=== PATIENT | male | born 1955 | race Caucasian/White ===

== ENCOUNTER → 2018-04-29 | Outpatient (CLI) | payer OTHER ==
--- NOTE | 2018-04-29 17:10 | RADIOLOGY REPORT (SQ) ---
EXAM DESCRIPTION: CHEST PA/LATERAL COMPLETED DATE/TIME: 04/29/2018 5:02 pm REASON FOR STUDY: PRE-OP COMPARISON: None. EXAM PARAMETERS: NUMBER OF VIEWS: two views TECHNIQUE: Digital Frontal and Lateral radiographic views of the chest acquired. RADIATION DOSE: NA LIMITATIONS: none FINDINGS: LUNGS AND PLEURA: There is somewhat nodular opacification both costophrenic angles. No pl eural effusion. MEDIASTINUM AND HILAR STRUCTURES: No masses or contour abnormalities. HEART AND VASCULAR STRUCTURES: Borderline heart size. No pulmonary edema. BONES: No acute findings. HARDWARE: None in the chest. OTHER: No other significant finding. IMPRESSION: Borderline heart size without pulmonary edema. Slight nodularity in the lung bases may ear represent granulomatous disease. No previous studies are available for comparison. TECHNICAL DOCUMENTATION: JOB ID: [id number] [employer]- All Rights Reserved Reading location - IP/workstation name: [email or web address]
[2018-04-29 17:43] LABS: ABSOLUTE LYMPHOCYTES (AUTO) 1.6 10^3/uL (0.5-4.7); ABSOLUTE MONOCYTES (AUTO) 0.9 10^3/uL (0.1-1.4); ABSOLUTE NEUT (AUTO) 3.9 10^3/uL (1.7-8.2); BASOPHILS % (AUTO) 0.3 % (0-2); EOSINOPHILS % (AUTO) 0.2 % (0-6); HEMATOCRIT 43.2 % (37.9-51.0); HEMOGLOBIN 14.7 g/dL (13.5-17.0); LYMPHOCYTES % (AUTO) 25.2 % (13-45); MEAN CORPUSCULAR VOLUME 88 fl (80-97); MONOCYTES % (AUTO) 13.4 % (3-13); PLATELET COUNT 158 10^3/uL (150-450); RED CELL DISTRIBUTION WIDTH 13.7 % (11.5-14.0); SEGMENTED NEUTROPHILS % (AUTO) 60.9 % (42-78); TOTAL CELLS COUNTED % (AUTO) 100 %; WHITE BLOOD COUNT 6.5 10^3/uL (4.0-10.5)
[2018-04-29 17:47] LABS: APPEARANCE,URINE CLEAR; BILIRUBIN,URINE NEGATIVE (NEGATIVE); COLOR,URINE YELLOW; GLUCOSE, URINE NEGATIVE (NEGATIVE); KETONES,URINE NEGATIVE (NEGATIVE); LEUKOCYTE ESTERASE,URINE NEGATIVE (NEGATIVE); NITRITE,URINE NEGATIVE (NEGATIVE); PROTEIN,URINE NEGATIVE (NEGATIVE)
[2018-04-29 17:53] LABS: URINE SPECIFIC GRAVITY 1.021
[2018-04-29 18:02] LABS: ANION GAP 6 (5-19); BLOOD UREA NITROGEN 16 mg/dL (7-20); CALCIUM 9.7 mg/dL (8.4-10.2); CARBON DIOXIDE 33 mmol/L (22-30); CHLORIDE 101 mmol/L (98-107); GLUCOSE 76 mg/dL (75-110); POTASSIUM 4.4 mmol/L (3.6-5.0); SODIUM 139.7 mmol/L (137-145)
--- NOTE | 2018-04-30 18:18 | EKG REPORT ---
SEVERITY:- BORDERLINE ECG - SINUS RHYTHM PROBABLE LEFT ATRIAL ABNORMALITY BORDERLINE INFERIOR Q WAVES : Confirmed by: Cynthia Emerson MD 30-Apr-2018 18:17:38
== END ==
LOC: OD 16:16
PROVIDERS: ATTEND Orthopaedic Surgery
DX: Z01.810 Encounter for preprocedural cardiovascular examination (principal); Z01.812 Encounter for preprocedural laboratory examination; Z01.818 Encounter for other preprocedural examination
CPT/HCPCS: 36415; 71046; 80048; 81001; 85025; 93005; 93010

== ENCOUNTER 2018-05-26 06:45 | Inpatient (IN) | payer OTHER ==
[~2018-05-26 06:45] MED LIST: BUPIVACAINE INJ/PF LIPOSOME/PF 266 MG/20 ML SDV IJ PRN; CEFAZOLIN INJ 1 GM VIAL ONE; CLINDAMYCIN 600 MG/D5W RTU 600 MG/50 ML RTUPB IV PRN; IBUPROFEN 800 MG/NS 250 ML IV PRN; LACTATED RINGERS 1000 ML IV PRN; LANSOPRAZOLE 15 MG TAB.RAP.DR ONE; LANSOPRAZOLE 15 MG TAB.RAP.DR PO PRN; LIDOCAINE 0.5% INJ-PF (5 MG/ML) 50 ML SDV SUBCUT PRN; OXYCODONE HCL SR 10 MG TABLET PO ONE; OXYCODONE HCL SR 10 MG TABLET PO PRN
[2018-05-26] MEDS ORDERED: MIDAZOLAM 2 MG/2 ML INJ ONE (06:52)
[2018-05-26] MEDS ORDERED: TRANEXAMIC ACID INJ/PF 1,000 MG/10 ML SDV IV ONE ×3 (06:53→11:00)
[2018-05-26] MEDS ORDERED: PROPOFOL INJ 200 MG/20 ML VIAL IV ONE (06:53)
[2018-05-26] MEDS ORDERED: ONDANSETRON HCL INJ/PF 4 MG/2 ML SDV ONE (06:53)
[2018-05-26] MEDS ORDERED: BUPIVACAINE HCL/DEX-WATER/PF 15 MG/2 ML AMPULE ONE (06:54)
[2018-05-26] MEDS ORDERED: IPRATROPIUM/ALBUTEROL 0.5-2.5 MG/3 ML AMPUL NEB ONE (07:01)
[2018-05-26] MEDS: VANCOMYCIN HCL 1,000 MG in DEXTROSE 5%-WATER 250 ML IV PRN ×2 (07:30→08:00)
[2018-05-26] MEDS: BUPIVACAINE HCL 0.25% /EPINEPHRINE INJ/PF 30 ML SDV ONE ×2 (07:42→09:15)
[2018-05-26] MEDS: THROMBIN (BOVINE) 5000 UNIT EPITAXIS KIT ONE ×2 (07:42→09:15)
[2018-05-26] MEDS ORDERED: CLINDAMYCIN 600 MG/D5W RTU 600 MG/50 ML RTUPB IV ONE (08:27)
[2018-05-26] MEDS ORDERED: FENTANYL CITRATE INJ/PF 100 MCG/2 ML AMPUL IV PRN ×3 (09:06)
[2018-05-26] MEDS ORDERED: MEPERIDINE HCL/PF INJ 25 MG/1 ML DISP.SYRIN IV PRN (09:06)
[2018-05-26] MEDS ORDERED: MORPHINE SULFATE 10 MG/ML INJ IV PRN ×5 (09:06→09:40)
[2018-05-26] MEDS ORDERED: PROMETHAZINE HCL INJ 25 MG/1 ML VIAL IV PRN (09:06)
[2018-05-26] MEDS ORDERED: DIPHENHYDRAMINE HCL 50 MG/ML VIAL IV PRN ×2 (09:06→09:40)
[2018-05-26] MEDS ORDERED: ZOLPIDEM TARTRATE 5 MG TABLET PO PRN (09:40)
[2018-05-26] MEDS ORDERED: ONDANSETRON HCL INJ/PF 4 MG/2 ML SDV IV PRN (09:40)
[2018-05-26] MEDS ORDERED: MAG HYDROX/AL HYDROX/SIMETH SUSP 30 ML UDCUP PO PRN (09:40)
[2018-05-26] MEDS ORDERED: ONDANSETRON 4 MG TAB.RAPDIS PO PRN (09:40)
[2018-05-26] MEDS ORDERED: ACETAMINOPHEN 325 MG TABLET PO PRN (09:40)
--- NOTE | 2018-05-26 09:40 | Operative Report ---
Operative Report DATE OF SURGERY: 05/26/18 PREOPERATIVE DIAGNOSIS: Right hip arthritis OPERATION: Right hip arthroplasty SURGEON: WENDY FREIRE ANESTHESIA: Spinal TISSUE REMOVED OR ALTERED: Bone to pathology ESTIMATED BLOOD LOSS: 100 PROCEDURE: Implants used: Femur: Vincent Accolade 2 size 6 femoral stem Acetabular shell: 60 mm hemispherical shell Liner: 36 mm flat cross-link polyethylene liner Head: A 6 mm chrome cobalt head standard neck The patient is placed in a left lateral decubitus position on the operating table. The right lower extremity and hindquarter is prepped and draped in a sterile fashion. A curvilinear incision was made over the greater trochanter a posterior approach the hip was taken. The femoral head is dislocated and the femoral neck transected using an oscillating saw. Attention was next turned to the acetabulum. Soft tissues cleared off the acetabulum using electrocautery. The acetabulum was then prepared using a series of hemispherical reamers until a 60 millimeters reamer is seated. Subsequently a 60 millimeters Vincent titanium hemispherical shell is impacted into position and secured with one screw. A standard flat 36 millimeters cross- link liner is impacted into the shell. Attention was next turned to the femur. Access is gained to the femoral canal using a box osteotome to the piriformis fossa. The femur is then prepared using a series of broaches until a number 6 broach is seated. A trial reduction was now performed using a 36 millimeters head with standard neck. Preoperative leg length was recreated and is excellent anterior posterior stability. A decision was made to proceed with the above construct. All trial implants were removed. The wound is irrigated with pulsed lavage. A number 6 stem is impacted into the femoral canal. A trial reduction was again performed with a 36 mm head and a standard neck. Findings as previously. The hip was dislocated one last time and the final chrome-cobalt head is impacted onto the trunnion. The hip was reduced. Wound is copiously irrigated with pulsed lavage. Sent closed in layers using interrupted Vicryl followed by erin. A sterile dressing is applied and the patient's returned to recovery room in satisfactory patient.
[2018-05-26] MEDS ORDERED: (PENDING PHARMACY ID) (Multivit-Min/Fa/Lycopen/Lutein [Centrum Silver Men Tablet] 1 TAB) PO SCH (10:00)
[2018-05-26] MEDS ORDERED: (PENDING PHARMACY ID) (Lisinopril [Lisinopril] 40 MG) PO SCH (10:00)
[2018-05-26] MEDS ORDERED: OXYCODONE HCL SR 10 MG TABLET PO SCH (10:00)
[2018-05-26] MEDS ORDERED: (PENDING PHARMACY ID) (Bupropion Hcl [Wellbutrin Sr 150 Mg Tablet] 150 MG) PO SCH (10:00)
--- NOTE | 2018-05-26 11:48 | RADIOLOGY REPORT (SQ) ---
EXAM DESCRIPTION: PELVIS AP COMPLETED DATE/TIME: 05/26/2018 10:23 am REASON FOR STUDY: Post Op Long Cassette in PACU M16.11 UNILATERAL PRIMARY OSTEOARTHRITIS, RIGHT HI P COMPARISON: None. NUMBER OF VIEWS: One view TECHNIQUE: Digital radiographic images of the pelvis post-procedure LIMITATIONS: None. FINDINGS: BONES: No worrisome or unexpected findings post-procedure. DEVICE: Total hip replacement. Components of the device in appropriate location. SOFT TISSUES: No worrisome findings. Expected postoperative soft tissue changes. IMPRESSION: SATISFACTORY POSTOPERATIVE PELVIS. TECHNICAL DOCUMENTATION: JOB ID: [id number] [employer]- All Rights Reserved Reading location - IP/workstation name: [email or web address]
[2018-05-26] MEDS ORDERED: NICOTINE POLACRILEX 4 MG PO PRN (14:56)
[2018-05-26] MEDS: OXYCODONE HCL IR 5 MG TABLET PO PRN (15:40)
[2018-05-26] MEDS: BUPROPION HCL 100 MG TABLET PO SCH ×2 (15:47→22:39)
[2018-05-26] MEDS ORDERED: IBUPROFEN 800 MG in NORMAL SALINE 250 ML IV SCH (18:00)
[2018-05-26] MEDS: SENNOSIDES/DOCUSATE 8.6-50 MG 1 EACH TABLET PO SCH (19:47)
[2018-05-26] MEDS: IBUPROFEN 800 MG in NORMAL SALINE 250 ML IV SCH (19:47)
[2018-05-26] MEDS: RINGERS SOLUTION,LACTATED 1,000 ML IV PRN (20:40)
[2018-05-26] MEDS ORDERED: VANCOMYCIN HCL 1,000 MG in DEXTROSE 5%-WATER 250 ML IV ONE (21:30)
[2018-05-26] MEDS: OXYCODONE HCL SR 10 MG TABLET PO SCH (22:40)
[2018-05-27] MEDS: IBUPROFEN 800 MG in NORMAL SALINE 250 ML IV SCH ×3 (01:36→18:06)
[2018-05-27] MEDS: LANSOPRAZOLE 30 MG TAB.RAP.DR PO SCH (05:43)
[2018-05-27] MEDS: BUPROPION HCL 100 MG TABLET PO SCH ×3 (05:43→21:46)
[2018-05-27] MEDS: RINGERS SOLUTION,LACTATED 1,000 ML IV PRN (05:45)
[2018-05-27 06:36] LABS: ANION GAP 8 (5-19); BLOOD UREA NITROGEN 15 mg/dL (7-20); CALCIUM 8.5 mg/dL (8.4-10.2); CARBON DIOXIDE 31 mmol/L (22-30); CHLORIDE 98 mmol/L (98-107); GLUCOSE 101 mg/dL (75-110); POTASSIUM 3.9 mmol/L (3.6-5.0)
[2018-05-27 06:37] LABS: HEMATOCRIT 35.3 % (37.9-51.0); HEMOGLOBIN 12.1 g/dL (13.5-17.0); MEAN CORPUSCULAR HEMOGLOBIN 30.1 pg (27.0-33.4); MEAN CORPUSCULAR HGB CONC 34.3 g/dL (32.0-36.0); MEAN CORPUSCULAR VOLUME 88 fl (80-97); PLATELET COUNT 128 10^3/uL (150-450); RED BLOOD COUNT 4.02 10^6/uL (4.35-5.55); RED CELL DISTRIBUTION WIDTH 13.3 % (11.5-14.0); WHITE BLOOD COUNT 9.3 10^3/uL (4.0-10.5)
--- NOTE | 2018-05-27 06:37 | PDOC PROGRESS REPORT ---
Subjective Progress Note for:: 05/27/18 Reason For Visit: M16.11 UNILATERAL PRIMARY OSTEOARTHRITIS, RIGHT HI 62-year-old white male postop day 1 status post right hip arthroplasty. Patient with minimal complaints of pain this morning. Ambulated 30 feet with physical therapy yesterday. Physical Exam Vital Signs: Temp Pulse Resp BP Pulse Ox 36.7 C 65 18 106/66 92 05/26/18 23:53 05/26/18 23:53 05/26/18 19:57 05/26/18 23:53 05/26/18 23:53 Intake & Output 05/25/18 05/26/18 05/27/18 06:59 06:59 06:59 Intake Total 6508 Output Total 2720 Balance 3788 General appearance: PRESENT: no acute distress, mild distress, obese, well- nourished Head exam: PRESENT: normocephalic Respiratory exam: PRESENT: unlabored Cardiovascular exam: PRESENT: RRR Pulses: PRESENT: +1 pedal pulses bilateral Vascular exam: PRESENT: normal capillary refill GI/Abdominal exam: PRESENT: soft Rectal exam: PRESENT: deferred Extremities exam: PRESENT: other - Right hip dressing clean dry and intact. Leg lengths are equal. Distal neurovascular examination is intact. Neurological exam: PRESENT: alert, awake, oriented to person, oriented to place , oriented to time, oriented to situation. ABSENT: motor sensory deficit Psychiatric exam: PRESENT: appropriate affect, normal mood. ABSENT: homicidal ideation, suicidal ideation Skin exam: PRESENT: dry, intact, warm. ABSENT: cyanosis, rash Results Laboratory Results: 05/26/18 05/26/18 05/27/18 07:20 07:20 03:53 WBC Cancelled RBC Cancelled Hgb Cancelled Hct Cancelled MCV Cancelled MCH Cancelled MCHC Cancelled RDW Cancelled Plt Count Cancelled Sodium Potassium 4.2 Chloride Carbon Dioxide Anion Gap BUN Creatinine Est GFR ( Amer) Est GFR (Non-Af Amer) Glucose Calcium Blood Type A POSITIVE Antibody Screen NEGATIVE 05/27/18 03:53 WBC RBC Hgb Hct MCV MCH MCHC RDW Plt Count Sodium Potassium Chloride Carbon Dioxide Anion Gap BUN Creatinine Est GFR ( Amer) Est GFR (Non-Af Amer) Glucose Calcium Blood Type Antibody Screen Impressions: Pelvis X-Ray 05/26/18 09:42 IMPRESSION: SATISFACTORY POSTOPERATIVE PELVIS. Status: Imported from PACS Assessment & Plan - Diagnosis (1) Arthritis of right hip Is this a current diagnosis for this admission?: Yes Plan: Land for continued mobilization with physical therapy weightbearing as tolerated. Anticipate discharge home tomorrow with home health services and DME - Time Time Spent with patient: 15-24 minutes Anticipated discharge: Home with Homehealth Within: within 24 hours
[2018-05-27] MEDS: OXYCODONE HCL SR 10 MG TABLET PO SCH ×2 (09:14→21:46)
[2018-05-27] MEDS: LISINOPRIL 10 MG TABLET PO SCH (09:15)
[2018-05-27] MEDS: HYDROCHLOROTHIAZIDE 25 MG TABLET PO SCH (09:16)
[2018-05-27] MEDS: ATENOLOL 50 MG TABLET PO SCH (09:16)
[2018-05-27] MEDS: ASPIRIN 81 MG TABLET, ENT COATED PO SCH (09:17)
[2018-05-27] MEDS: OXYCODONE HCL IR 5 MG TABLET PO PRN (09:17)
[2018-05-27] MEDS: SENNOSIDES/DOCUSATE 8.6-50 MG 1 EACH TABLET PO SCH ×2 (09:17→18:04)
[2018-05-27] MEDS: PRENATAL VITAMIN W DHA CAPSULE PO SCH (09:17)
[2018-05-27] MEDS ORDERED: ATORVASTATIN CALCIUM 80 MG TABLET PO SCH ×2 (10:00→22:00)
[2018-05-27] MEDS ORDERED: ENOXAPARIN SODIUM INJ 30 MG/0.3 ML DISP.SYRIN SUBCUT SCH (10:00)
[2018-05-28] MEDS: IBUPROFEN 800 MG in NORMAL SALINE 250 ML IV SCH ×2 (02:46→10:06)
[2018-05-28 05:46] LABS: HEMATOCRIT 34.5 % (37.9-51.0); HEMOGLOBIN 11.8 g/dL (13.5-17.0); MEAN CORPUSCULAR HEMOGLOBIN 30.2 pg (27.0-33.4); MEAN CORPUSCULAR HGB CONC 34.2 g/dL (32.0-36.0); MEAN CORPUSCULAR VOLUME 88 fl (80-97); PLATELET COUNT 121 10^3/uL (150-450); RED BLOOD COUNT 3.91 10^6/uL (4.35-5.55); RED CELL DISTRIBUTION WIDTH 13.3 % (11.5-14.0); WHITE BLOOD COUNT 11.9 10^3/uL (4.0-10.5)
[2018-05-28] MEDS: LANSOPRAZOLE 30 MG TAB.RAP.DR PO SCH (05:54)
[2018-05-28] MEDS: BUPROPION HCL 100 MG TABLET PO SCH (05:54)
--- NOTE | 2018-05-28 07:08 | PDOC DISCHARGE SUMMARY ---
General - Admit/Disc Date/PCP Admission Date/Primary Care Provider: 05/26/18 06:45 VLADIMIR BROWNE MD Discharge Date: 05/28/18 - Discharge Diagnosis (1) Arthritis of right hip Is this a current diagnosis for this admission?: Yes - Additional Information Resuscitation Status: Full Code Discharge Diet: As Tolerated, Regular Discharge Activity: Balance Activity w/Rest, No Driving, No tub bath Home Medications: Atenolol 50 mg PO DAILY 05/15/18 Atorvastatin Calcium [Lipitor 80 mg Tablet] 80 mg PO DAILY 05/15/18 Bupropion HCl [Wellbutrin Sr 150 mg Tablet] 150 mg PO BID 05/15/18 Hydrochlorothiazide 25 mg PO DAILY 05/15/18 Lisinopril 40 mg PO DAILY 05/15/18 Multivit-Min/FA/Lycopen/Lutein [Centrum Silver Men Tablet] 1 tab PO DAILY Nicotine Polacrilex [Nicorette] 4 mg PO ASDIR PRN 05/15/18 Aspirin [Ecotrin 81 mg EC Tablet] 81 mg PO DAILY tabec 05/28/18 Oxycodone HCl [Oxy-Ir 5 mg Tablet] 5 mg PO Q6HP PRN tablet 05/28/18 History of Present Illness History of Present Illness: DIEGO VICTORIA is a 62 year old male 62-year-old white male with progressive right hip pain and functional disability second osteoarthritis. Patient admitted for an elective right hip arthroplasty. Hospital Course Hospital Course: Patient admitted through the operating room where he undergoes uncomplicated right hip arthroplasty. Is returned to floor in satisfactory condition. Makes excellent progress with physical therapy. Wound remains clean dry and intact. Physical Exam Vital Signs: Temp Pulse Resp BP Pulse Ox 36.7 C 76 19 138/72 H 94 05/27/18 23:18 05/27/18 23:18 05/27/18 23:18 05/27/18 23:18 05/27/18 23:18 Intake & Output 05/27/18 05/28/18 05/29/18 06:59 06:59 06:59 Intake Total 6508 3175 Output Total 9730 845 Balance 3788 2330 Weight 119 kg 118.2 kg Physical Exam: Patient is an overweight middle-aged white male lying comfortably in hospital bed. Patient is alert oriented and appropriate General appearance: PRESENT: no acute distress, obese, well-nourished Head exam: PRESENT: normocephalic Respiratory exam: PRESENT: unlabored Cardiovascular exam: PRESENT: RRR Pulses: PRESENT: +1 pedal pulses bilateral Rectal exam: PRESENT: deferred Extremities exam: PRESENT: other - Right hip dressing clean dry and intact. Leg lengths are equal. Distal neurovascular examination is intact. Neurological exam: PRESENT: alert, awake, oriented to person, oriented to place , oriented to time, oriented to situation. ABSENT: motor sensory deficit Psychiatric exam: PRESENT: appropriate affect, normal mood. ABSENT: homicidal ideation, suicidal ideation Skin exam: PRESENT: dry, intact, warm. ABSENT: cyanosis, rash Results Laboratory Results: 05/28/18 05:18 05/27/18 06:05 05/28/18 05:18 WBC 11.9 H RBC 3.91 L Hgb 11.8 L Hct 34.5 L MCV 88 MCH 30.2 MCHC 34.2 RDW 13.3 Plt Count 121 L Impressions: Pelvis X-Ray 05/26/18 09:42 IMPRESSION: SATISFACTORY POSTOPERATIVE PELVIS. Status: Imported from PACS Qualifiers - * PATIENT BEING DISCHARGED WITH ANY OF THE FOLLOWING DIAGNOSIS: No VTE patient discharged on overlapping Therapy?: Yes Plan Discharge Plan: Patient be discharged home with home health services and DME. Follow-up Dr. Magalie Almaraz [place] for surgery in 2 weeks for staple removal. Time Spent: Less than 30 Minutes
--- NOTE | 2018-05-28 10:07 | RADIOLOGY REPORT (SQ) ---
EXAM DESCRIPTION: CTA CHEST COMPLETED DATE/TIME: 05/28/2018 9:46 am REASON FOR STUDY: R/O PE M16.11 UNILATERAL PRIMARY OSTEOARTHRITIS, RIGHT HIP postoperative pulmonar y symptoms, shortness of breath after hip replacement COMPARISON: Two-view chest 04/29/2018 TECHNIQUE: CT scan of the chest performed using helical scanning technique with dynamic intravenous contrast injection. Images reviewed with lung, soft tissue and bone windows. Reconstructed coronal and sagittal MPR images reviewed. Additional 3 dimensional post-processing performed to develop Maximal Intensity Projection images (TN P). All images stored on PACS. All CT scanners at this facility use dose modulation, iterative reconstruction, and/or weight based d osing when appropriate to reduce radiation dose to as low as reasonably achievable (ALARA). [facility]: Dose Right [facility]: CareDose [facility]: Dose Right [facility]: Teradose 4D [facility]: DataProm CONTRAST TYPE AND DOSE: contrast/concentration: Isovue 350.00 mg/ml; Total Contrast Delivered: 77.0 ml; Total Saline Delivered: 110.0 ml Contrast bolus adequate for pulmonary arteries and thoracic aorta RENAL FUNCTION: GFR > 60. RADIATION DOSE: CT Rad equipment meets quality standard of care and radiation dose reduction techniq ues were employed. CTDIvol: 15.4 - 16.9 mGy. DLP: 562 mGy-cm. . LIMITATIONS: None. FINDINGS: LUNGS AND PLEURA: There is bibasilar consolidation in the right and left posterior lower l obes, atelectasis versus pneumonia. No fluffy alveolar infiltrates worrisome for pulmonary edema. No pneumothorax or pleural effusion There is hyperinflation of the lung apices. Old calcified 12 mm granuloma right lung base accounts f or density seen on chest film 05/09/2018. AORTA AND GREAT VESSELS: No aneurysm. Contrast bolus not optimized for the aorta. HEART: No pericardial effusion. No significant coronary artery calcifications. PULMONARY ARTERIES: No emboli visualized in the main pulmonary arteries or the segmental branches. HILAR AND MEDIASTINAL STRUCTURES: Old calcified right hilar and sub- carinal lymph nodes from granulo matous disease. HARDWARE: None in the chest. UPPER ABDOMEN: No significant findings. Limited exam. THYROID AND OTHER SOFT TISSUES: No masses. No adenopathy. BONES: No acute or significant finding. 3D MIPS: Confirm above findings. OTHER: No other significant finding. IMPRESSION: No CT angio evidence of acute pulmonary emboli Bibasilar consolidation atelectasis versus pneumonia COMMENT: Quality ID # [id number]: Final reports with documentation of one or more dose reduction techniques (e.g., Automated exposure control, adjustment of the mA and/or kV according to patient size, use of iterative reconstruction technique) TECHNICAL DOCUMENTATION: JOB ID: [id number] [employer]- All Rights Reserved Reading location - IP/workstation name: [email or web address]
[2018-05-28] MEDS: HYDROCHLOROTHIAZIDE 25 MG TABLET PO SCH (10:08)
[2018-05-28] MEDS: ASPIRIN 81 MG TABLET, ENT COATED PO SCH (10:08)
[2018-05-28] MEDS: OXYCODONE HCL SR 10 MG TABLET PO SCH (10:08)
[2018-05-28] MEDS: ATENOLOL 50 MG TABLET PO SCH (10:09)
[2018-05-28] MEDS: LISINOPRIL 10 MG TABLET PO SCH (10:09)
[2018-05-28] MEDS: SENNOSIDES/DOCUSATE 8.6-50 MG 1 EACH TABLET PO SCH (10:09)
[2018-05-28] MEDS: PRENATAL VITAMIN W DHA CAPSULE PO SCH (10:09)
[2018-05-28 10:26] VITALS: BP 129/67
[2018-05-28] MEDS ORDERED: IPRATROPIUM/ALBUTEROL 0.5-2.5 MG/3 ML AMPUL NEB SCH (12:00)
--- NOTE | 2018-05-28 14:57 | PDOC CONSULTATION ---
Consultation Consult Date: 05/28/18 Attending physician:: WENDY FREIRE Consult reason:: Hypoxia History of Present Illness Admission Date/PCP: 05/26/18 06:45 VLADIMIR BROWNE MD History of Present Illness: DIEGO VICTORIA is a 62 year old male with progressive right hip pain and functional disability secondary to osteoarthritis, admitted on 05/26/18 for elective right hip arthroplasty. Postop, patient did well but was noted to be hypoxic today to low 80s. He is a former smoker, quit about 2 months ago. Denies chest pain or shortness of breath, no fever or chills, no headaches. His O2 sat improved to about 90 with O2. Medical consult was obtained. Past Medical History Cardiac Medical History: Reports: Hyperlipidema, Hypertension Denies: Atrial Fibrillation, Congestive Heart Failure, Coronary Artery Disease, Myocardial Infarction, Peripheral Vascular Disease, Heart Murmur Pulmonary Medical History: Denies: Asthma, Bronchitis, Chronic Obstructive Pulmonary Disease (COPD), Sleep Apnea Neurological Medical History: Denies: Seizures Endocrine Medical History: Denies: Hyperthyroidism, Hypothyroidism GI Medical History: Denies: Gastroesophageal Reflux Disease Musculoskeltal Medical History: Reports: Arthritis - hips, neck (c-5, C-6) Denies: Fibromyalgia Psychiatric Medical History: Denies: Bipolar Disorder, Depression, Post Traumatic Stress Disorder Hematology: Denies: Anemia Past Surgical History Past Surgical History: Reports: Tonsillectomy Denies: Appendectomy, Cholecystectomy, Coronary Artery Bypass Graft, Gastric Bypass Surgery, Herniorrhaphy, Pacemaker Social History Smoking Status: Former Smoker Hx Recreational Drug Use: No Hx Prescription Drug Abuse: No - Advance Directive Resuscitation Status: Full Code Family History Parental Family History Reviewed: Yes Children Family History Reviewed: Yes Sibling(s) Family History Reviewed.: Yes Medication/Allergy Home Medications: Atenolol 50 mg PO DAILY 05/15/18 Atorvastatin Calcium [Lipitor 80 mg Tablet] 80 mg PO DAILY 05/15/18 Bupropion HCl [Wellbutrin Sr 150 mg Tablet] 150 mg PO BID 05/15/18 Hydrochlorothiazide 25 mg PO DAILY 05/15/18 Lisinopril 40 mg PO DAILY 05/15/18 Multivit-Min/FA/Lycopen/Lutein [Centrum Silver Men Tablet] 1 tab PO DAILY Nicotine Polacrilex [Nicorette] 4 mg PO ASDIR PRN 05/15/18 Aspirin [Ecotrin 81 mg EC Tablet] 81 mg PO DAILY tabec 05/28/18 Oxycodone HCl [Oxy-Ir 5 mg Tablet] 5 mg PO Q6HP PRN tablet 05/28/18 Allergies/Adverse Reactions: Penicillins Allergy (Severe, Verified 05/26/18 07:49) Swelling of tongue Review of Systems Review of Systems: CONSTITUTIONAL : Fever, chills -- No; unexpalined fatigue -- No EENT: Denies eye, ear, throat, or mouth pain or symptoms. Denies nasal or sinus congestion or discharge. Denies throat, tongue, or mouth swelling or difficulty swallowing. CARDIOVASCULAR: Denies chest pain. No racing heart RESPIRATORY: Has intermittent cough but nonproductive, denies shortness of breath, difficulty breathing. GASTROINTESTINAL: Denies abdominal pain or distention. Denies nausea, vomiting , or diarrhea. No rectal bleeding. GENITOURINARY: Urinary symptoms -- no. MUSCULOSKELETAL: No acute weakness SKIN: Denies rash, lesions or sores. HEMATOLOGIC : Denies easy bruising or bleeding. LYMPHATIC: Denies swollen, enlarged glands. NEUROLOGICAL: New weakness, headaches, slured speach - No PSYCHIATRIC: Changes anxiety or stress, depression, suicidal ideation, or homicidal ideation -- No ALL OTHER SYSTEMS REVIEWED AND NEGATIVE. Physical Exam Vital Signs: Temp Pulse Resp BP Pulse Ox 98.1 F 68 16 129/67 H 94 05/28/18 10:25 05/28/18 12:13 05/28/18 12:13 05/28/18 10:25 05/28/18 12:13 Intake & Output 05/27/18 05/28/18 05/29/18 06:59 06:59 06:59 Intake Total 0288 3175 Output Total 2580 845 Balance 3788 2330 Weight 119 kg 118.2 kg GENERAL: Well-developed, nourished male, no acute distress HEENT: Normocephalic/atraumatic, PERRL, EOMI, oral mucosa moist NECK supple, no JVD CARDIOVASCULAR: RRR, normal S1-S2, no appreciable murmur LUNGS: Occasional wheezing bilaterally ABDOMEN: Soft, NT, NL bowel sounds EXTREMITIES: No edema, clubbing, cyanosis NEUROLOGICAL: Alert, oriented x 3, nonfocal Results Laboratory Results: 05/28/18 05:18 05/27/18 06:05 05/28/18 05:18 WBC 11.9 H RBC 3.91 L Hgb 11.8 L Hct 34.5 L MCV 88 MCH 30.2 MCHC 34.2 RDW 13.3 Plt Count 121 L Impressions: Pelvis X-Ray 05/26/18 09:42 IMPRESSION: SATISFACTORY POSTOPERATIVE PELVIS. Chest/Abdomen CTA 05/28/18 08:44 IMPRESSION: No CT angio evidence of acute pulmonary emboli Bibasilar consolidation atelectasis versus pneumonia Assessment & Plan - Diagnosis (1) Hypoxemia Is this a current diagnosis for this admission?: Yes (2) History of right hip hemiarthroplasty Is this a current diagnosis for this admission?: Yes (3) Arthritis of right hip Is this a current diagnosis for this admission?: Yes - Plan Summary Plan Summary: Patient O2 sat improved from about 82 to 88 with deep breathing and cough. Recommend nebulizers. Also, encouraged to use incentive spirometry at this time. Encouraging is no PE on chest CTA. CTA results noted as above. Patient with no fever, although white blood cells slightly up today. This may very well be reactive. Also suspect CTA finding likely atelectasis. However recommend follow-up CBC and low threshold for starting antibiotics if patient develops a fever. Also treat with O2 2 L nasal cannula and titrate as may be needed. Patient may also need CPAP. States he used at home but has been noncompliant.
== END 2018-05-28 12:45 | disposition home health service (06) | DRG 470 ==
LOC: INOR 06:45 → 4S 11:09
PROVIDERS: ADMIT Orthopaedic Surgery; ATTEND Orthopaedic Surgery
PROC: 0SR902A Replacement of Right Hip Joint with Metal on Polyethylene Synthetic Substitute, Uncemented, Open Approach (ICD-10-PCS; principal; 2018-05-26 08:45)
DX: M16.11 Unilateral primary osteoarthritis, right hip (principal); R09.02 Hypoxemia; I10 Essential (primary) hypertension; E78.5 Hyperlipidemia, unspecified; F32.9 Major depressive disorder, single episode, unspecified; F17.211 Nicotine dependence, cigarettes, in remission
CPT/HCPCS: 01214; 36415; 71275; 72170; 80048; 84132; 85027; 86850; 86900; 86901; 88304; 88311; 94640; 94799; C1776; J0690; J1741; J2250; J2405; J2704; J3370; J3490; J7050; J7060; J7120; J7620